=== PATIENT | female | born 1950 | race African-American/Black ===

== ENCOUNTER 2023-05-29 01:13 | Emergency (ER) | payer MEDICARE, MEDICAID ==
[~2023-05-29] VITALS: Ht 165.1 cm; Wt 68.0 kg
[2023-05-29 01:30] VITALS: O2SAT 99
[2023-05-29 01:54] LABS: EOSINOPHILS % 3.4 % (0.0-5.0); HEMATOCRIT. 36.8 % (36.0-48.0); MEAN CORPUSCULAR HEMOGLOBIN 31.6 pg (28.0-32.0); MEAN CORPUSCULAR HGB CONC 32.6 g/dL (31.0-37.0); MEAN CORPUSCULAR VOLUME 96.8 fL (81.0-99.0); MEAN PLATELET VOLUME 9.4 fl (7.4-10.4); NEUTROPHILS % 41.6 % (40.0-76.0); PLATELET 188 x1000/uL (130-400); WHITE BLOOD COUNT 3.9 x1000/uL (4.5-11.0)
[2023-05-29 02:07] LABS: ALANINE AMINOTRANSFERASE 10 IU/L (10-49); ALBUMIN 3.6 g/dL (3.2-4.8); ASPARTATE AMINOTRANSFERASE 24 IU/L (<34); CARBON DIOXIDE 26 mEq/L (21-32); CHLORIDE 110 mEq/L (98-107); CREATININE 0.9 mg/dL (0.6-1.0); GLUCOSE 104 mg/dL (70-105); POTASSIUM 3.6 mEq/L (3.5-5.1); PROTEIN TOTAL 6.9 g/dL (6.0-8.3); SODIUM 144 mEq/L (136-145); TROPONIN I HIGH SENSITIVITY 34 ng/L (3.0-34); UREA NITROGEN BLOOD 10 mg/dL (9-23)
[2023-05-29 04:30] VITALS: BP 140/81; PULSE 86; RESP 16; TEMP 98
== END 2023-05-29 04:35 | disposition home or self-care (01) ==
LOC: ER 01:13
DX: G89.29 Other chronic pain (principal); R10.9 Unspecified abdominal pain; F12.90 Cannabis use, unspecified, uncomplicated
CPT/HCPCS: 36415; 80053; 84484; 85025; 99283